=== PATIENT | female | born 1980 | race Caucasian/White ===

== ENCOUNTER 2017-12-24 11:29 | Emergency (ER) | payer OTHER ==
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
[2017-12-24 14:50] VITALS: BP 127/79
== END 2017-12-24 14:49 | disposition home or self-care (01) ==
LOC: ER 11:29
DX: S16.1XXA Strain of muscle, fascia and tendon at neck level, initial encounter (principal); R07.89 Other chest pain; M54.2 Cervicalgia; V43.52XA Car driver injured in collision with other type car in traffic accident, initial encounter; Z88.0 Allergy status to penicillin
CPT/HCPCS: 71046; 72125; 99284